=== PATIENT | female | born 2000 | race Two or more races ===

== ENCOUNTER → 2024-10-25 | Outpatient (CLI) | payer MEDICAID, SELFPAY ==
--- NOTE | 2024-10-25 | XR_ITS ---
Examination: Lumbar spine 3 views Technique one AP lateral coned lateral lower lumbar spine 3 views Exam date and time: October 25, 2024 1411 hrs. Indications: Low back pain beginning one year ago. Findings: Adequate alignment lumbar vertebral bodies Mild disc narrowing L5-S1 No spondylolisthesis Impression: Mild disc narrowing L5-S1
--- NOTE | 2024-10-25 | XR_ITS ---
Examination: Cervical spine 3 views Technique one AP lateral coned AP odontoid cervical spine 3 views Exam date and time: October 25, 2024 1411 hrs. Indications: Neck pain beginning one year ago. Findings: Reversal normal cervical lordosis No fracture Intact odontoid No significant cervical disc narrowing Impression: Reversal normal cervical lordosis, seen with muscle spasm
== END | disposition home or self-care (01) ==
PROVIDERS: PCP Nurse Practitioner Family; Referring Provider Nurse Practitioner Family; Visit Provider Nurse Practitioner Family
DX: M54.42 Lumbago with sciatica, left side (principal); M48.07 Spinal stenosis, lumbosacral region; M40.40 Postural lordosis, site unspecified
CPT/HCPCS: 72040; 72100

== ENCOUNTER → 2024-11-24 | Outpatient (CLI) | payer MEDICAID, SELFPAY ==
--- NOTE | 2024-11-24 14:00 | XR_ITS ---
Examination: Abdomen sonogram, complete Date and time of exam: November 24, 2024 1405 hours INDICATIONS: Lower abdominal pain beginning 2 years ago. Technique: Multiple real-time grayscale transabdominal sonographic images of the abdomen have been obtained. Findings: Normal gallbladder Normal common bile duct 0.3 cm Pancreatic head 1.8 cm Aorta not enlarged Liver 13.7 cm smooth contour No focal liver lesions Normal hepatopedal portal venous flow Right kidney 13.7 cm cortex 1.6 cm Left kidney 10.6 cm cortex 1.8 cm Mild bilateral renal parenchymal scar formation Spleen 9.8 cm IMPRESSION: Normal gallbladder Liver normal size Mild bilateral renal parenchymal scar formation
--- NOTE | 2024-11-24 14:04 | XR_ITS ---
Examination: Pelvic ultrasound, transabdominal, complete Technique: Transabdominal ultrasound of the pelvis performed using grayscale imaging Date and time of exam: November 24, 2024 1427 hours INDICATIONS: Lower pelvic pain and cramping beginning 2 years ago FINDINGS: Uterus 8.1 cm endometrial stripe 0.9 cm No uterine mass or intrauterine gestation Right ovary 3.0 cm arterial flow small follicles Left ovary 2.6 cm arterial flow small follicles IMPRESSION: No uterine mass or intrauterine gestation
== END | disposition home or self-care (01) ==
PROVIDERS: PCP Physician Assistant; Referring Provider Physician Assistant; Visit Provider Physician Assistant
DX: N28.89 Other specified disorders of kidney and ureter (principal); R10.30 Lower abdominal pain, unspecified
CPT/HCPCS: 76700; 76856